=== PATIENT | male | born 1965 | race Caucasian/White ===

== ENCOUNTER 2017-11-23 10:03 | Observation (INO) | payer BC ==
[~2017-11-23] VITALS: Ht 180.3 cm; Wt 113.6 kg
[~2017-11-23 10:03] MED LIST: ASPIRIN325 MG PO
[2017-11-23 10:52] LABS: BASOPHIL (%) 0.4 % (0-1); EOSINOPHIL (%) 1.5 % (0-5); EOSINOPHIL COUNT 0.1 K/uL (0-0.3); HEMATOCRIT 48.2 % (38.0-50.0); HEMOGLOBIN 16.8 G/DL (12.5-16.6); IMMATURE GRANULOCYTE (%) 0.4 % (0.0-0.7); LYMPHOCYTE (%) 21.6 % (15-42); MCH 31.5 PG (29.0-34.0); MCHC 34.9 G/DL (30.0-36.0); MCV 90.3 FL (86-99); MONOCYTE (%) 6.1 % (3-12); MONOCYTE COUNT 0.6 K/uL (0-0.8); NEUTROPHIL COUNT 6.5 K/uL (1.8-6.4); PLATELET COUNT 173 K/uL (156-360); RBC DIS.WIDTH-SD 46.5 % (39-53); RED BLOOD COUNT 5.34 M/uL (4.00-5.50); WHITE BLOOD COUNT 9.3 K/uL (4.1-10.2)
[2017-11-23 11:01] LABS: ALBUMIN 3.9 g/dL (3.2-4.8)
[2017-11-23 11:02] LABS: CHLORIDE 107 mEq/L (99-109); POTASSIUM 4.9 mEq/L (3.7-5.4); SODIUM 140 mEq/L (136-147)
[2017-11-23 11:04] LABS: GLUCOSE 96 mg/dL (70-99); TOTAL PROTEIN 7.6 g/dL (6.4-8.3)
[2017-11-23 11:04] LABS: D-DIMER ELISA < 150.00 ng/mLDDU (<230)
[2017-11-23 11:06] LABS: TOTAL BILIRUBIN 0.6 mg/dL (0.0-1.0)
[2017-11-23 11:07] LABS: ALKALINE PHOSPHATASE 60 IU/L (3-129)
[2017-11-23 11:08] LABS: GFR ESTIMATE (CALCULATED) > 59 mL/min/ (58.99-99999)
[2017-11-23 11:09] LABS: AST (GOT) 28 IU/L (2-34); UREA NITROGEN (BUN) 12 mg/dL (9-23)
[2017-11-23 11:11] LABS: ALT (GPT) 19 IU/L (3-49); CREATINE KINASE 40 IU/L (1-294)
[2017-11-23 11:17] LABS: TROP-I INTERPRETATION NEGATIVE; TROPONIN-I 0.02 ng/mL (0.0-0.30)
[2017-11-23 13:22] LABS: TROP-I INTERPRETATION NEGATIVE; TROPONIN-I < 0.01 ng/mL (0.0-0.30)
[2017-11-23 13:45] LABS: LYME DISEASE SEROLOGY SCREEN NEGATIVE (NEGATIVE)
[2017-11-23] MEDS ORDERED: ELIQUIS5 MG PO (15:22)
[2017-11-23] MEDS ORDERED: TOPROL XL25 MG PO (15:22)
[2017-11-23 15:57] VITALS: BP 145/114
== END 2017-11-23 15:59 | disposition home or self-care (01) ==
LOC: EME 10:03 → EDOF 14:36 → ENRESERV 14:37 → CANRESERV 14:37 → EDOF 15:59
PROVIDERS: Emergency Medicine
DX: R07.9 Chest pain, unspecified (principal); I48.91 Unspecified atrial fibrillation; G47.30 Sleep apnea, unspecified; R09.89 Other specified symptoms and signs involving the circulatory and respiratory systems; R53.83 Other fatigue; M25.50 Pain in unspecified joint; F17.200 Nicotine dependence, unspecified, uncomplicated; Z79.82 Long term (current) use of aspirin
CPT/HCPCS: 71045; 71275; 80053; 82550; 83880; 84443; 84484; 85025; 85379; 86618; 93005; 99281; 99285; G0378; J7030